=== PATIENT | female | born 1975 | race Two or more races ===

== ENCOUNTER 2024-07-22 11:18 | Emergency (ER) | payer MEDICAID, SELFPAY ==
--- NOTE | 2024-07-22 11:20 | EKG_ITS ---
[facility] Test Date: 2024-07-22 Pat Name: LINDA HERRERA Department: Room: - Gender: Female Alternative Medicine Practitioner: : 1975 Requested By: ED Temporary Provider Order Number: [id number] Reading MD: ED Temporary Provider Measurements Intervals [place] Rate: 78 P: 42 HI: 157 QRS: 100 QRSD: 85 T: 53 QT: 381 QTc: 435 Interpretive Statements SINUS RHYTHM BORDERLINE RIGHT AXIS DEVIATION [QRS AXIS > 90] MINIMAL ST DEPRESSION [0.025+ mV ST DEPRESSION] Compared to ECG 03/18/2024 15:26:20 ST (T wave) deviation now present /store/S0/[id number].pdf
[2024-07-22 11:26] VITALS: BP 145/86; PULSE 86; RESP 18; TEMP 36.4; O2SAT 98; BMI 29.7
--- NOTE | 2024-07-22 11:50 | XR_ITS ---
Examination: CT brain head without contrast. 2-D sagittal coronal reconstructions Date and time of exam:July 22, 2024 1235 hours Comparison March 18, 2024 INDICATIONS: Headaches beginning 3 days ago CTDI: vol (mGy):46.1 DLP: (mGycm):911 Technique: Multiple CT axial sections of the brain have been obtained, 5 mm slice thickness. Contrast has not been administered. 2-D sagittal, coronal reconstructions have been obtained Low dose protocols were performed. One or more of the following dose reduction techniques were used; automated exposure control, adjustment of the mA and/or KV according to patient size, use of iterative reconstruction technique. Findings: No significant ventricular enlargement. Intra-axial or extra-axial hemorrhage density is not seen. No mass effect or midline shift Basal cisterns are not remarkable. Fourth ventricle is midline. Cranial vault intact. Impression: Negative for acute hemorrhage, mass effect or midline shift Advise clinical correlation follow-up accordingly
--- NOTE | 2024-07-22 11:50 | XR_ITS ---
Examination: PA lateral chest 2 views TECHNIQUE: Upright PA lateral chest 2 views Exam date and time: July 22, 2024 1157 hours Comparison December 03, 2023 INDICATIONS: Onset chest pain today. FINDINGS: Normal heart size Lungs are clear. The osseous structures are intact IMPRESSION: No active disease
--- NOTE | 2024-07-22 11:51 | PD.EDRME ---
Rapid Medical Screening Exam RME Arrival date/time: 07/22/24 11:18 49-year-old female presents to the emergency department complains of headache dizziness and chest pain Chief Complaint: Headache Time Seen by Provider: 07/22/24 11:20 Vital signs: Vital Signs Temperature 97.6 F 07/22/24 11:26 Pulse Rate 86 07/22/24 11:26 Respiratory Rate 18 07/22/24 11:26 Blood Pressure 145/86 H 07/22/24 11:26 Pulse Oximetry (%) 98 07/22/24 11:26 Oxygen Delivery Method Room Air 07/22/24 11:26
[2024-07-22 12:29] LABS: Basophils % (Auto) 1 % (0-2.5); Eosinophils # (Auto) 0.1 Thou/mm3 (0.0-0.5); Eosinophils % (Auto) 2 % (0-10); Hemoglobin 13.4 g/dL (12.0-16.0); Immature Granulocytes % (Auto) 0 % (0-0); Immature Granulocytes Auto 0.01 Thou/mm3 (0.00-0.00); Lymphocytes # (Auto) 2.2 Thou/mm3 (1.0-4.8); Lymphocytes % (Auto) 44 % (10-50); Mean Corpuscular HGB Conc 35.3 g/dl (31.0-37.0); Mean Corpuscular Hemoglobin 31.1 pg (25.0-35.0); Mean Corpuscular Volume 88 fL (80-100); Monocytes # (Auto) 0.3 Thou/mm3 (0.0-0.8); Monocytes % (Auto) 6 % (0-12); Neutrophils # (Auto) 2.4 Thou/mm3 (1.8-7.7); Neutrophils % (Auto) 48 % (37-80); Nucleated Red Blood Cell % 0 /100 WBC (0); Platelet Count 228 Thou/mm3 (140-440); RDW Standard Deviation 39.1 fL (36.4-46.3); Red Blood Count 4.31 Miln/mm3 (4.00-5.20)
[2024-07-22 12:50] LABS: Alanine Aminotransferase 15 U/L (10-49); Albumin, Serum 4.7 gm/dL (3.5-5.0); Albumin/Globulin Ratio 1.5 (1.2-2.2); Alkaline Phosphatase 116 U/L (46-116); Anion Gap 8 (7-16); Aspartate Amino Transferase 17 U/L (0-34); BUN/Creatinine Ratio 13 Ratio (12-20); Bilirubin,Total 0.4 mg/dL (0.3-1.2); Blood Urea Nitrogen 8 mg/dL (9-23); Calcium 9.5 mg/dL (8.3-10.6); Calcium (Corrected) 9.5 mg/dL (8.5-10.1); Carbon Dioxide 25.3 mMol/L (20.0-31.0); Chloride 102 mMol/L (98-107); Creatinine (Component) 0.6 mg/dL (0.6-1.3); Estimated Creatinine Clearance 98.3 mL/min (>60); Globulin 3.1 gm/dL (2.3-3.5); Glucose 145 mg/dL (74-106); Osmolality,Calculated 271 (275-295); Potassium 3.6 mMol/L (3.4-5.1); Sodium 135 mMol/L (136-145); Total Protein 7.8 gm/dL (5.7-8.2); Troponin I < 0.002 ng/mL (0.0-0.045); eGFR > 60 See Note
[2024-07-22 13:43] VITALS: BP 128/84; PULSE 65; RESP 18; TEMP 36.8; O2SAT 96
--- NOTE | 2024-07-22 14:47 | PD.EDHA ---
ED Headache RME/HPI General Chief Complaint: Headache Stated Complaint: THORNE, CHEST PAIN Time Seen by Provider: 07/22/24 11:20 Arrival date/time: 07/22/24 11:18 RME / HPI RME / HPI Narrative: 49-year-old female patient with no significant medical history, came in for evaluation regarding headache. Patient's been having occipital headache for the last 3 days, associated with dizziness. Also complained of left-sided chest pain for 3 days described as dull except mild. Denies any cough denies any fever denies any upper or lower extremity weakness. Patient is ambulatory. Denies any head trauma or fall. Related Data Previous Rx's ?Medication ?Instructions ?Recorded acetaminophen 500 mg capsule 1,000 mg (2 x 500 mg) PO Q8HR PRN 03/02/20 pain #60 caps cyclobenzaprine 10 mg tablet 10 mg PO TID PRN muscle spasm #30 03/02/20 tabs ibuprofen 800 mg tablet 800 mg PO TID PRN pain #30 tabs 03/02/20 ciprofloxacin HCl 500 mg tablet 500 mg PO BID #14 tabs 01/18/23 famotidine 20 mg tablet 20 mg PO QDAY #14 tabs 01/18/23 ibuprofen 800 mg tablet 800 mg PO Q8H PRN pain #30 tabs 07/17/23 naproxen 500 mg tablet 500 mg PO BID #30 tabs 11/25/23 scopolamine base 1 mg over 3 days 1 mg topical .q 3 days #10 ea 12/03/23 transdermal patch (Transderm-Scop) rizatriptan 10 mg disintegrating 10 mg PO Q2H PRN migraine headache 07/22/24 tablet (Maxalt[employer]) #30 tabs Allergies Allergy/AdvReac Type Severity Reaction Status Date / Time No Known Allergies Allergy Verified 03/18/24 15:02 Review of Systems Review of Systems Narrative Review of Systems: Review of system reviewed and within normal limits except mentioned in HPI ED Exam Narrative Physical exam: VITAL SIGNS: Reviewed. GENERAL APPEARANCE: Alert and interactive, follows commands, no acute distress, HEAD AND FACE: Non-traumatic. ENT: PERRL, pink conjunctivitis, eyelid no trauma, Mucous membrane moist. NECK: Supple, nontender, no nuchal rigidity. CHEST: No tenderness, no crepitus, no paradoxical movement, no retractions. LUNGS: Clear, well ventilated, symmetric, no rales, no wheezing, no ronchi, no stridor, good breath sounds bilaterally. HEART: Regular rate, regular rhythm, no murmur, no gallops. ABDOMEN: Soft, positive bowel sounds, nondistended, no guarding, nontender, no rebound, no masses, RECTAL: Deferred. GENITAL: Deferred. NEUROLOGICAL: Gross motor function intact sensory function intact, Appropriate for age. MUSCULOSKELETAL: low back nontender, full range of motion. EXTREMITIES: Nontender, full range of motion. SKIN: Color pink, dry, no rash, no lacerations, no abrasions, no contusions. LYMPHATICS: Deferred. Course Quality Measures none Orders Category Date Time Status EKG (ED ONLY) *Do not use* NOW Care 07/22/24 11:[address] head/brain wo con Stat Exams 07/22/24 11:50 Completed EKG (ED Only) Stat Exams 07/22/24 11:20 Draft XR chest 2V Stat Exams 07/22/24 11:50 Completed CBC Stat Lab 07/22/24 12:07 Completed Comprehensive Metabolic Panel Stat Lab 07/22/24 12:07 Completed Troponin I Stat Lab 07/22/24 12:07 Completed Ketorolac Inj [Toradol Inj] Med 07/22/24 14:46 Discontinued 30 mg IM X1 ONE Vital Signs Vital signs: Vital Signs Temperature 97.6 F 07/22/24 11:26 Pulse Rate 86 07/22/24 11:26 Respiratory Rate 18 07/22/24 11:26 Blood Pressure 145/86 H 07/22/24 11:26 Pulse Oximetry (%) 98 07/22/24 11:26 Oxygen Delivery Method Room Air 07/22/24 11:26 Headache MDM Narrative MDM Narrative:: 49-year-old female patient with no significant medical history, came in for evaluation regarding headache. Patient's been having occipital headache for the last 3 days, associated with dizziness. Also complained of left-sided chest pain for 3 days described as dull except mild. Denies any cough denies any fever denies any upper or lower extremity weakness. Patient is ambulatory. Denies any head trauma or fall. Laboratory workup all came back normal cardiac workup is normal EKG also came back unremarkable chest x-ray also came back unremarkable. CT scan of the head also came back unremarkable. Results discussed with the patient. Patient was given Toradol IM with good relief of headache. Repeat troponin is not needed since symptoms been ongoing for 3 days now. Patient data External records reviewed:: None Clinical information provided by:: none Social determinants that could affect healthcare access:: none Patient has the following chronic illnesses:: None How is presenting disease/condition affected by chronic disease/condition?: no chronic disease Evaluation data The following diagnostics were reviewed and interpreted by me:: lab results, radiology exam(s) and EKG tracing(s) Lab and/or radiology exams considered but not ordered:: None Interpretation Summary: Laboratory workup including troponin all came back normal. CT scan of the head came back unremarkable. I personally reviewed and interpreted the x-ray of this patient. There is no acute abnormalities found, no infiltrates no pneumothorax no hemothorax normal chest x-ray. Review of other structures was without significant abnormal findings also. I additionally reviewed the radiologist report and agree with the interpretation. EKG showed normal sinus rhythm, ventricular rate of 78 bpm, no ST segment elevation depression noted. Medications / Prescriptions Medications or Prescriptions considered but not ordered:: None Medication administrations:: Medication Administration History Discontinued Medications Ketorolac Tromethamine (Ketorolac Inj 60 Mg/2 Ml Vial) 30 mg IM X1 ONE Stop: 07/22/24 14:47 Last Admin: 07/22/24 15:14 Dose: 30 mg Documented By: OA Toradol IM Consultations Consultation(s) initiated? (list below): No Diagnosis Differential diagnosis headache: migraine, tension headache and headache Most likely diagnosis given after review of the tests above:: Stable Admission Indicated Admission indicated?: not indicated Explain why admission is indicated or not indicated:: Stable discharge Admission Request Was there a request for admission?: No Disposition Plan Disposition Plan: Discharge Discharge Attestation Discharge Attestation: The patient and all family members were given an opportunity to ask questions and understood the discharge instructions. Discharge instructions specifically effects, indications for sooner follow up or return to the emergency department, and the expected course of current diagnosis. Patient condition: Stable Discharge Plan Plan Patient Disposition: HOME (Self Care) Disposition Comment: stable Prescriptions/Referrals Prescriptions/Med Rec: New rizatriptan [Maxalt[employer]] 10 mg tablet,disintegrating 10 mg PO Q2H PRN (Reason: migraine headache) Qty: 30 0RF Rx Instructions: do not exceed 3 doses per 24 hrs No Action cyclobenzaprine 10 mg tablet 10 mg PO TID PRN (Reason: muscle spasm) Qty: 30 0RF ibuprofen 800 mg tablet 800 mg PO TID PRN (Reason: pain) Qty: 30 0RF acetaminophen 500 mg capsule 1,000 mg PO Q8HR PRN (Reason: pain) Qty: 60 0RF famotidine 20 mg tablet 20 mg PO QDAY Qty: 14 0RF ciprofloxacin HCl 500 mg tablet 500 mg PO BID Qty: 14 0RF ibuprofen 800 mg tablet 800 mg PO Q8H PRN (Reason: pain) Qty: 30 0RF scopolamine base [Transderm-Scop] 1 mg over 3 days patch 3 day 1 mg topical .q 3 days Qty: 10 0RF naproxen 500 mg tablet 500 mg PO BID Qty: 30 0RF Referrals: Jesse Staley([facility]MD [Primary Care Provider] - In 1 week Problem List Clinical Impression: Headache Patient/Caregiver Discharge Instructions Discharge Activity: activity as tolerated Education Materials: Self-Care for Headaches Additional Instructions: Thank you for the opportunity for serving you today. You are stable for discharged . You are advised to: Follow-up with your PCP in 1 to 2 days Return to ED for worsening of symptoms Increase oral fluids Take medication as prescribed Print Language: Setswana Stand Alone Forms: Brenda Award Info., Patient Portal Info Letter PA/DISTRIBUTION OPERATIONS MANAGER Supervising Physician PA/DISTRIBUTION OPERATIONS MANAGER Supervising Physician: MD Jihan
[2024-07-22] MEDS: KETOROLAC INJ 60 MG/2 ML VIAL 30 MG IM (15:14)
== END 2024-07-22 15:41 | disposition home or self-care (01) ==
PROVIDERS: Nurse Practitioner Primary Care; Emergency Provider Emergency Medicine; PCP Family Medicine
DX: R51.9 Headache, unspecified (principal)
CPT/HCPCS: 36415; 70450; 71046; 80053; 84484; 85025; 93005; 96372; 99284; J1885

== ENCOUNTER 2025-01-13 15:02 | Emergency (ER) | payer MEDICAID, SELFPAY ==
[2025-01-13 15:15] VITALS: BP 139/88; PULSE 99; RESP 17; TEMP 37.5; O2SAT 96
--- NOTE | 2025-01-13 15:46 | XR_ITS ---
Examination: CT abdomen and pelvis without contrast. Coronal 3-D reconstructions. Sagittal 2-D reconstructions. Date and time of exam: January 13, 2025, 1704 hours INDICATIONS: Left lower abdominal pain onset today CTDI: vol (mGy): 8.50 DLP: (mGycm): 452 Technique: Axial images of the abdomen have been obtained, 3 mm slice thickness Intravenous contrast material has not been administered. Low dose protocols were performed. One or more of the following dose reduction techniques were used; automated exposure control, adjustment of the mA and/or KV according to patient size, use of iterative reconstruction technique. Findings: No visualized liver or splenic lesion Absent gallbladder No pancreatic or adrenal mass No renal or ureteral calculi, no hydronephrosis Aorta normal size 25 mm fat-containing umbilical hernia No pericecal inflammatory change Acute diverticulitis junction distal descending colon and sigmoid colon No peridiverticular abscess Anteverted uterus Mild thickening of the urinary bladder wall up to 6 mm Advanced degenerative disc disease L5-S1 IMPRESSION: Acute diverticulitis junction distal descending colon and sigmoid colon No peridiverticular abscess
--- NOTE | 2025-01-13 15:47 | PD.EDRME ---
Rapid Medical Screening Exam E Arrival date/time: 01/13/25 15:02 49-year-old female with no known medical history presents to the emergency room with a chief complaint of left lower quadrant abdominal pain, fever, nausea, dysuria x 4 days. Patient was sent over by his primary care provider I have greeted and performed a focused initial assessment of this patient. A comprehensive ED assessment and evaluation of the patient, analysis of all test results, and completion of the medical decision making process will be conducted by additional ED providers. Chief Complaint: Abdominal Pain Vital signs: Vital Signs Temperature 99.5 F 01/13/25 15:15 Pulse Rate 99 01/13/25 15:15 Respiratory Rate 17 01/13/25 15:15 Blood Pressure 139/88 H 01/13/25 15:15 Pulse Oximetry (%) 96 01/13/25 15:15 Oxygen Delivery Method Room Air 01/13/25 15:15 Vital signs reviewed by provider: Yes
[2025-01-13 16:19] LABS: Collection Type, Urine Clean Catch
[2025-01-13 16:21] LABS: Basophils % (Auto) 0 % (0-2.5); Eosinophils % (Auto) 0 % (0-10); Hematocrit 38.3 % (36.0-46.0); Hemoglobin 13.6 g/dL (12.0-16.0); Immature Granulocytes % (Auto) 0 % (0-0); Immature Granulocytes Auto 0.02 Thou/mm3 (0.00-0.00); Lymphocytes # (Auto) 1.6 Thou/mm3 (1.0-4.8); Lymphocytes % (Auto) 16 % (10-50); Mean Corpuscular HGB Conc 35.5 g/dl (31.0-37.0); Mean Corpuscular Hemoglobin 31.4 pg (25.0-35.0); Mean Corpuscular Volume 89 fL (80-100); Monocytes # (Auto) 0.5 Thou/mm3 (0.0-0.8); Monocytes % (Auto) 5 % (0-12); Neutrophils # (Auto) 7.7 Thou/mm3 (1.8-7.7); Neutrophils % (Auto) 78 % (37-80); Nucleated Red Blood Cell % 0 /100 WBC (0); Platelet Count 211 Thou/mm3 (140-440); RDW Standard Deviation 40.5 fL (36.4-46.3); Red Blood Count 4.33 Miln/mm3 (4.00-5.20); White Blood Count 9.8 Thou/mm3 (3.6-11.0)
[2025-01-13 16:24] LABS: HCG Qualitative,Urine Negative
[2025-01-13 16:27] LABS: Bacteria,Urine Rare; Bilirubin,Urine Negative (Negative); Blood,Urine 1+ (Negative); Clarity,Urine Clear (Clear/Hazy); Color,Urine Lt-Yellow (Lt Yel-Yel); Glucose, Urine Negative (Negative); Ketones,Urine Negative (Negative); Leukocyte Esterase,Urine Positive (Negative); Nitrite,Urine Negative (Negative); PH,Urine 7.5 (5.0-7.0); Protein,Urine Negative (Neg - Trace); RBC,Urine 14 /hpf (0-3); Squamous Epithelial Cell,Urine 3 /hpf (0-5); Urobilinogen,Urine Negative mg/dL (0.0-1.0); WBC,Urine 18 /hpf (0-5)
[2025-01-13 16:55] LABS: Alanine Aminotransferase 20 U/L (10-49); Albumin, Serum 4.6 gm/dL (3.5-5.0); Albumin/Globulin Ratio 1.5 (1.2-2.2); Alkaline Phosphatase 127 U/L (46-116); Anion Gap 8 (7-16); Aspartate Amino Transferase 26 U/L (0-34); BUN/Creatinine Ratio 11 Ratio (12-20); Bilirubin,Total 0.6 mg/dL (0.3-1.2); Blood Urea Nitrogen 8 mg/dL (9-23); Calcium 8.9 mg/dL (8.3-10.6); Calcium (Corrected) 8.9 mg/dL (8.5-10.1); Carbon Dioxide 26.7 mMol/L (20.0-31.0); Chloride 104 mMol/L (98-107); Creatinine (Component) 0.7 mg/dL (0.6-1.3); Globulin 3.1 gm/dL (2.3-3.5); Glucose 106 mg/dL (74-106); Lipase 45 U/L (12-53); Osmolality,Calculated 275 (275-295); Potassium 4.3 mMol/L (3.4-5.1); Sodium 139 mMol/L (136-145); Total Protein 7.7 gm/dL (5.7-8.2); eGFR > 60 See Note
--- NOTE | 2025-01-13 21:02 | EDNOTE_ITS ---
ED Abdominal Pain RME/HPI General Chief Complaint: Abdominal Pain Stated complaint: LEFT LOWER ABD PAIN X1DAY Time seen by provider: 01/13/25 18:05 Arrival date/time: 01/13/25 15:02 RME / HPI RME / HPI narrative: 01/13/25 15:02 49-year-old female with no known medical history presents to the emergency room with a chief complaint of left lower quadrant abdominal pain, fever, nausea, dysuria x 4 days. Patient was sent over by his primary care provider I have greeted and performed a focused initial assessment of this patient. A comprehensive ED assessment and evaluation of the patient, analysis of all test results, and completion of the medical decision making process will be conducted by additional ED providers. ------- This section includes all my notes and documentations, including HPI, PE, and ED course. Yong Bobo MD HPI: 49yo female with no significant past medical history presents to the ED for a chief complaint of LLQ pain x 4 days. No radiation or migration. Patient reports associated nausea, equivocal fever, and dysuria. Patient states she was seen by her PCP today and was sent here for evaluation. Patient denies any vomiting, chest pain, shortness of breath or any other associated symptoms. No other complaints reported. ROS: All negative except as documented in HPI. Physical Exam: General: Alert and oriented. No acute distress when remaining still. Eyes: Conjunctivae and lids clear. ENT: No nasal congestion. Neck: Supple. Heart: RRR. Lungs: No respiratory distress. Good air movement. No rhonchi, wheezing, rales. Abdomen: Soft with mild LLQ tenderness. Normal bowel sounds. No distension. No rebound or guarding. Back: No CVA tenderness. Skin: Warm and dry. Neuro: Alert and oriented X 3. I reviewed all diagnostic test results. My review of the CT abdomen pelvis report is acute diverticulitis. Blood tests and urine tests are unremarkable. At this point, diagnoses include diverticulitis. Treatment here included Tylenol with Codeine, Ciprofloxacin, Flagyl, and Zofran. Significant improvement noted. Recommended outpatient management. Based on my best medical judgment, made decision no further evaluation or treatment indicated at this time. Patient understands and agrees to the discharge instructions customized and printed, see below. Discharge instructions from Dr. Bobo: 1. After evaluation, your symptoms are due to diverticulitis.? Infection of your colon. 2. Take Cipro and Flagyl for the infection. 3. Zofran for nausea/vomiting. 4. Tyleno with l codeine for severe pain. 5. Clear liquid diet for 24 hours then advance as tolerated. 6. To prevent dehydration, increase oral fluid and maintain clear urine.? If dark or yellow, increase oral fluid. 7. See a private doctor on 01/17/2025. To make sure there is no serious intra-abdominal condition, ask for help with more investigation not available here in the ER. Such as EGD or scoping the stomach, colonoscopy or scoping the colon, and referral to see sales executive. 8. Seek immediate medical care with worsening, fever, or with any concerns. Yong Bobo MD Related Data Previous Rx's ?Medication ?Instructions ?Recorded acetaminophen 500 mg capsule 1,000 mg (2 x 500 mg) PO Q8HR PRN 03/02/20 pain #60 caps cyclobenzaprine 10 mg tablet 10 mg PO TID PRN muscle s pasm #30 03/02/20 tabs ibuprofen 800 mg tablet 800 mg PO TID PRN pain #30 t abs 03/02/20 ciprofloxacin HCl 500 mg tablet 500 mg PO BID #14 tabs 01/18/23 famotidine 20 mg tablet 20 mg PO QDAY #14 tabs 01/18 ibuprofen 800 mg tablet 800 mg PO Q8H PRN pain #30 t abs 07/17/23 naproxen 500 mg tablet 500 mg PO BID #30 tabs 11/24 scopolamine base 1 mg over 3 days 1 mg topical .q 3 da ys #10 ea 12/03/23 transdermal patch (Transderm-Scop) rizatriptan 10 mg disintegrating 10 mg PO Q2H PRN migr francisco javier headache 07/22/24 tablet (Maxalt-[employer]PER[employer] T[employer] HEADING) #30 tabs acetaminophen 300 mg-codeine 30 mg 2 tab PO Q8H PRN pa in #20 tabs 01/13/25 tablet ciprofloxacin HCl 500 mg tablet 500 mg PO BID #20 tabs 01/13/25 (Cipro) metronidazole 500 mg tablet 500 mg PO BID 10 days #20 tabs 01/13/25 ondansetron 4 mg disintegrating 4 mg PO TID PRN nausea and 01/13/25 tablet vomiting 30 days #10 tabs Allergies Allergy/AdvReac Type Severity Reaction Status Date / Time No Known Allergies Allergy Verified 01/13/25 15:05 Review of Systems Review of Systems Systems Reviewed: All systems reviewed, normal except as documented Past Medical History Past Medical History CARDIAC: Negative Congestive Heart Failure RESPIRATORY: Negative Chronic Obstructive Pulmonary Disease (COPD) GENITOURINARY: Negative Renal Disease ENDOCRINE: Negative Diabetes Mellitus Type 1 or Diabetes Mellitus Type 2 Family History FAMILY HISTORY: Negative Family Cardiac Disorders Social History SMOKING STATUS: Never smoker SUBSTANCE USE: does not use ED Exam Narrative Physical exam: As noted in HPI. Course Quality Measures none Orders Category Date Time Status CT abdomen pelvis wo con Stat Exams 01/13/25 15:46 Completed CBC Stat Lab 01/13/25 16:02 Completed CMP [Comprehensive Metabolic Panel] Stat Lab 01/13/25 16:02 Completed HCG Qualitative,Urine Stat Lab 01/13/25 16:14 Completed Lipase Stat Lab 01/13/25 16:02 Completed UA [Urinalysis] Stat Lab 01/13/25 16:14 Completed Urine Culture Stat Lab 01/13/25 16:14 Received ACETAMINOPHEN w/COD 300-30 [Tylenol w/Cod #3] Med 01/13/25 21:04 Discontinued 2 tab PO X1 ONE Ciprofloxacin HCl [Ciprofloxacin] Med 01/13/25 21:04 Discontinued 500 mg PO X1 ONE Ondansetron Odt [Zofran Odt] Med 01/13/25 21:04 Discontinued 4 mg PO X1 ONE metroNIDAZOLE [Flagyl] Med 01/13/25 21:04 Discontinued 500 mg PO X1 ONE Vital Signs Vital signs: Vital Signs Temperature 99.5 F 01/13/25 15:15 Pulse Rate 99 01/13/25 15:15 Respiratory Rate 17 01/13/25 15:15 Blood Pressure 139/88 H 01/13/25 15:15 Pulse Oximetry (%) 96 01/13/25 15:15 Oxygen Delivery Method Room Air 01/13/25 15:15 Abdominal Pain MDM MDM Narrative MDM Narrative:: Scribe Attestation: 01/13/25 Helen Finn am scribing for and in the presence of Dr. Bobo. 49yo female with no significant past medical history presents to the ED for a chief complaint of LLQ pain x 4 days. No radiation or migration. Patient reports associated nausea, fever, and dysuria. Patient states she was seen by her PCP today and was sent here for evaluation. Patient denies any vomiting, chest pain, shortness of breath or any other associated symptoms. No other complaints reported. Patient data External records reviewed:: [facility] previous records (Per chart review, patient was seen here on 07/22/24 for a headache.) Clinical information provided by:: patient Social determinants that could affect healthcare access:: none Patient has the following chronic illnesses:: none How is presenting disease/condition affected by chronic disease/condition?: no chronic disease Evaluation data The following diagnostics were reviewed and interpreted by me:: lab results and radiology exam(s) Lab and/or radiology exams considered but not ordered:: none Interpretation Summary: I reviewed all diagnostic test results. My review of the CT abdomen pelvis report is acute diverticulitis. Blood tests and urine tests are unremarkable except for UTI. Medications / Prescriptions Medications or Prescriptions considered but not ordered:: none Medication administrations:: Medication Administration History Discontinued Medications Acetaminophen/Codeine Phosphate (Acetaminophen W/Cod 300-30 Tablet) 2 tab PO X1 ONE Stop: 01/13/25 21:05 Last Admin: 01/13/25 21:15 Dose: 2 tab Documented By: SHARRON Ciprofloxacin (Ciprofloxacin Hcl 250 Mg Tablet) 500 mg PO X1 ONE Stop: 01/13/25 21:05 Last Admin: 01/13/25 21:15 Dose: 500 mg Documented By: SHARRON Metronidazole (Metronidazole 250 Mg Tablet) 500 mg PO X1 ONE Stop: 01/13/25 21:05 Last Admin: 01/13/25 21:15 Dose: 500 mg Documented By: SHARRON Ondansetron HCl (Ondansetron Odt 4 Mg Tabrap) 4 mg PO X1 ONE; Protocol Stop: 01/13/25 21:05 Last Admin: 01/13/25 21:16 Dose: 4 mg Documented By: SHARRON Tylenol with Codeine, Ciprofloxacin, Flagyl, Zofran Consultations Consultation(s) initiated? (list below): No Diagnosis Differential diagnosis abdominal pain: acute appendicitis, calculus of kidney, constipation, diverticulitis, endometriosis, pancreatitis, small bowel obstruction and other Most likely diagnosis given after review of the tests above:: Diverticulitis Admission Indicated Admission indicated?: not indicated Explain why admission is indicated or not indicated:: With no severe illness, there was no indication for admission. Admission Request Was there a request for admission?: No Disposition Plan Disposition Plan: Discharge Discharge Attestation Discharge Attestation: The patient and all family members were given an opportunity to ask questions and understood the discharge instructions. Discharge instructions specifically effects, indications for sooner follow up or return to the emergency department, and the expected course of current diagnosis. Patient condition: Stable Discharge Plan Plan Patient Disposition: HOME (Self Care) Prescriptions/Referrals Prescriptions/Med Rec: New metronidazole 500 mg tablet 500 mg PO BID 10 Days Qty: 20 0RF acetaminophen-codeine 300-30 mg tablet 2 tab PO Q8H MDD 6 PRN (Reason: pain) Qty: 20 0RF ciprofloxacin HCl [Cipro] 500 mg tablet 500 mg PO BID Qty: 20 0RF ondansetron 4 mg tablet,disintegrating 4 mg PO TID PRN (Reason: nausea and vomiting) 30 Days Qty: 10 0RF No Action cyclobenzaprine 10 mg tablet 10 mg PO TID PRN (Reason: muscle spasm) Qty: 30 0RF ibuprofen 800 mg tablet 800 mg PO TID PRN (Reason: pain) Qty: 30 0RF acetaminophen 500 mg capsule 1,000 mg PO Q8HR PRN (Reason: pain) Qty: 60 0RF famotidine 20 mg tablet 20 mg PO QDAY Qty: 14 0RF ciprofloxacin HCl 500 mg tablet 500 mg PO BID Qty: 14 0RF ibuprofen 800 mg tablet 800 mg PO Q8H PRN (Reason: pain) Qty: 30 0RF scopolamine base [Transderm-Scop] 1 mg over 3 days patch 3 day 1 mg topical .q 3 days Qty: 10 0RF naproxen 500 mg tablet 500 mg PO BID Qty: 30 0RF rizatriptan [Maxalt-[employer] T[employer] HEADING] 10 mg tablet,disintegrating 10 mg PO Q2H PRN (Reason: migraine headache) Qty: 30 0RF Rx Instructions: do not exceed 3 doses per 24 hrs Referrals: Jason Bates MD [Primary Care Provider] - In 1 week Problem List Clinical Impression: Diverticulitis Patient/Caregiver Discharge Instructions Discharge Activity: activity as tolerated Education Materials: ED Diverticulitis Additional Instructions: Discharge instructions from Dr. Bobo: 1. After evaluation, your symptoms are due to diverticulitis.? Infection of your colon. 2. Take Cipro and Flagyl for the infection. 3. Zofran for nausea/vomiting. 4. Tyleno with l codeine for severe pain. 5. Clear liquid diet for 24 hours then advance as tolerated. 6. To prevent dehydration, increase oral fluid and maintain clear urine.? If dark or yellow, increase oral fluid. 7. See a private doctor on 01/17/2025. To make sure there is no serious intra-abdominal condition, ask for help with more investigation not available here in the ER. Such as EGD or scoping the stomach, colonoscopy or scoping the colon, and referral to see sales executive. 8. Seek immediate medical care with worsening, fever, or with any concerns. Instrucciones de mari del Dr. Bobo: 1. Tras la evaluaci?n, natali s?ntomas se deben a diverticulitis. Infecci?n del colon. 2. [place] Ciprofloxacino y Flagyl para la infecci?n. 3. Zofran para las n?useas y los v?mitos. 4. Tyleno con l-code?na para el dolor intenso. 5. Dieta de l?quidos shailesh jassi 24 horas y luego aumente la dosis seg?n la tolerancia. 6. Para prevenir la deshidrataci?n, aumente la ingesta de l?quidos y mantenga la orina sally. Si la orina es oscura o amarilla, aumente la ingesta de l?quidos. 7. Consulte con un m?dico particular el 04/16/2025. Para asegurarse de que no haya shabbir afecci?n intraabdominal grave, solicite ayuda con otras pruebas que no est?n disponibles en urgencias, kenia EGD o endoscopia g?strica, colonoscopia o endoscopia de colon, y derivaci?n a un gastroenter?logo. 8. Busque atenci?n m?dica inmediata si presenta empeoramiento, fiebre o cual quier inquietud. Print Language: Iranian Stand Alone Forms: Brenda Award Info., Patient Portal Info Letter
[2025-01-13] MEDS: ACETAMINOPHEN w/COD 300-30 TABLET 2 TAB PO (21:15)
[2025-01-13] MEDS: CIPROFLOXACIN HCL 250 MG TABLET 500 MG PO (21:15)
[2025-01-13] MEDS: metroNIDAZOLE 250 MG TABLET 500 MG PO (21:15)
[2025-01-13] MEDS: ONDANSETRON ODT 4 MG TABRAP PO (21:16)
[2025-01-13 21:18] VITALS: BP 136/76; PULSE 86; RESP 16; TEMP 37; O2SAT 98
== END 2025-01-13 21:19 | disposition home or self-care (01) ==
PROVIDERS: Nurse Practitioner Family; Emergency Provider Emergency Medicine; PCP Family Medicine
DX: K57.32 Diverticulitis of large intestine without perforation or abscess without bleeding (principal)
CPT/HCPCS: 36415; 74176; 80053; 81001; 81025; 83690; 85025; 87077; 87086; 87186; 99284; Q0162; A9270

== ENCOUNTER 2025-01-14 08:48 | Emergency (ER) | payer MEDICAID, SELFPAY ==
[2025-01-14 08:56] VITALS: BP 119/78; PULSE 75; RESP 16; TEMP 36.4; O2SAT 96; BMI 29.7
--- NOTE | 2025-01-14 09:16 | EDRME_ITS ---
Rapid Medical Screening Exam [facility] Arrival date/time: 01/14/25 08:48 49-year-old female with a history of diverticulitis presents to the emergency room with a chief complaint of left lower quadrant abdominal pain and a headache. Patient was seen here yesterday diagnosed with diverticulitis but she has not picked up her prescription and started her outpatient treatment. Today she presents with worsening signs and symptoms. The patient is afebrile, denies blood in the stool. I have greeted and performed a focused initial assessment of this patient. A comprehensive ED assessment and evaluation of the patient, analysis of all test results, and completion of the medical decision making process will be conducted by additional ED providers. Chief Complaint: Abdominal Pain Vital signs: Vital Signs Temperature 97.5 F 01/14/25 08:56 Pulse Rate 75 01/14/25 08:56 Respiratory Rate 16 01/14/25 08:56 Blood Pressure 119/78 01/14/25 08:56 Pulse Oximetry (%) 96 01/14/25 08:56 Oxygen Delivery Method Room Air 01/14/25 08:56 Vital signs reviewed by provider: Yes
[2025-01-14] MEDS: metroNIDAZOLE 250 MG TABLET 500 MG PO (09:26)
[2025-01-14] MEDS: CIPROFLOXACIN HCL 250 MG TABLET 500 MG PO (09:27)
[2025-01-14] MEDS: HYDROcodone/APAP 5/325 TABLET 1 TAB PO (09:27)
[2025-01-14 10:21] LABS: Basophils % (Auto) 0 % (0-2.5); Eosinophils % (Auto) 0 % (0-10); Hemoglobin 13.2 g/dL (12.0-16.0); Immature Granulocytes % (Auto) 0 % (0-0); Immature Granulocytes Auto 0.02 Thou/mm3 (0.00-0.00); Lymphocytes % (Auto) 13 % (10-50); Mean Corpuscular HGB Conc 34.7 g/dl (31.0-37.0); Mean Corpuscular Hemoglobin 31.2 pg (25.0-35.0); Mean Corpuscular Volume 90 fL (80-100); Monocytes # (Auto) 0.4 Thou/mm3 (0.0-0.8); Monocytes % (Auto) 5 % (0-12); Neutrophils # (Auto) 6.5 Thou/mm3 (1.8-7.7); Neutrophils % (Auto) 82 % (37-80); Nucleated Red Blood Cell % 0 /100 WBC (0); Platelet Count 211 Thou/mm3 (140-440); RDW Standard Deviation 40.6 fL (36.4-46.3); Red Blood Count 4.23 Miln/mm3 (4.00-5.20)
[2025-01-14 10:44] LABS: Alanine Aminotransferase 170 U/L (10-49); Albumin, Serum 4.6 gm/dL (3.5-5.0); Albumin/Globulin Ratio 1.4 (1.2-2.2); Alkaline Phosphatase 183 U/L (46-116); Anion Gap 12 (7-16); Aspartate Amino Transferase 187 U/L (0-34); BUN/Creatinine Ratio 11 Ratio (12-20); Bilirubin,Total 1.5 mg/dL (0.3-1.2); Blood Urea Nitrogen 8 mg/dL (9-23); Calcium 9.1 mg/dL (8.3-10.6); Calcium (Corrected) 9.1 mg/dL (8.5-10.1); Carbon Dioxide 25.4 mMol/L (20.0-31.0); Chloride 100 mMol/L (98-107); Creatinine (Component) 0.7 mg/dL (0.6-1.3); Estimated Creatinine Clearance 84.4 mL/min (>60); Globulin 3.2 gm/dL (2.3-3.5); Glucose 174 mg/dL (74-106); Lipase 36 U/L (12-53); Osmolality,Calculated 276 (275-295); Potassium 4.2 mMol/L (3.4-5.1); Sodium 137 mMol/L (136-145); Total Protein 7.8 gm/dL (5.7-8.2); eGFR > 60 See Note
[2025-01-14 15:51] VITALS: BP 116/76; PULSE 60; RESP 16; TEMP 36.4; O2SAT 99
[2025-01-14 16:32] LABS: Collection Type, Urine Clean Catch
[2025-01-14 16:38] LABS: HCG Qualitative,Urine Negative
[2025-01-14 16:45] LABS: Bacteria,Urine Rare; Bilirubin,Urine Negative (Negative); Blood,Urine Trace (Negative); Color,Urine Yellow (Lt Yel-Yel); Glucose, Urine Negative (Negative); Ketones,Urine Negative (Negative); Leukocyte Esterase,Urine Positive (Negative); Nitrite,Urine Negative (Negative); PH,Urine 6.5 (5.0-7.0); Protein,Urine 1+ (Neg - Trace); RBC,Urine 12 /hpf (0-3); Squamous Epithelial Cell,Urine 26 /hpf (0-5); Urobilinogen,Urine Negative mg/dL (0.0-1.0); WBC,Urine 325 /hpf (0-5)
[2025-01-14 16:50] LABS: Clarity,Urine Hazy (Clear/Hazy)
[2025-01-14 17:17] VITALS: BP 128/74; PULSE 22; TEMP 36.7; O2SAT 95
[2025-01-14 18:09] VITALS: BP 128/74; PULSE 54; RESP 17; TEMP 36.9; O2SAT 98
--- NOTE | 2025-01-14 18:19 | PC.NURSE ---
Patient arrived to ED with c/o pain to left lower quadrant. She stated the pain started 2 days ago at night time when she was asleep. Denies any trauma to area, no bruising noted. Nausea present when pain is intense. She stated she had a colonoscopy 2 years ago for a physical check up, which resulted in a ulcer and hemmhoids. Pt had her gallbladder removed previously. Currently pt's VSS.
--- NOTE | 2025-01-14 18:35 | EDNOTE_ITS ---
ED Abdominal Pain RME/HPI General Chief Complaint: Abdominal Pain Stated complaint: LLQ ABD PAIN/THORNE/NAUSEA Time seen by provider: 01/14/25 18:24 Arrival date/time: 01/14/25 08:48 01/14/25 08:48 49-year-old female with no past medical history presents to the emergency room with a chief complaint of left lower quadrant abdominal pain and a headache since last night. She is also complaining of dysuria and frequency for the past 1 month that comes and goes.. Patient was seen here yesterday, diagnosed with diverticulitis but she has not picked up her prescription and started her outpatient treatment. She indicates her pharmacy was already closed by the time she was released from the ED last night at 8 PM. This morning when she woke up her pain was worse. Today she presents with worsening signs and symptoms. She denies fever, chills, nausea or vomiting, diarrhea or constipation. Last bowel movement was night before last. Denies melena/bright red blood per rectum. Source: patient Mode of arrival: ambulatory Limitations: language barrier (Machine I Cutter phone utilized.) RME / HPI RME / HPI narrative: 01/14/25 08:48 49-year-old female with a history of diverticulitis presents to the emergency room with a chief complaint of left lower quadrant abdominal pain and a headache. Patient was seen here yesterday diagnosed with diverticulitis but she has not picked up her prescription and started her outpatient treatment. Today she presents with worsening signs and symptoms. The patient is afebrile, denies blood in the stool. I have greeted and performed a focused initial assessment of this patient. A comprehensive ED assessment and evaluation of the patient, analysis of all test results, and completion of the medical decision making process will be conducted by additional ED providers. Related Data Previous Rx's ?Medication ?Instructions ?Recorded acetaminophen 500 mg capsule 1,000 mg (2 x 500 mg) PO Q8HR PRN 03/02/20 pain #60 caps cyclobenzaprine 10 mg tablet 10 mg PO TID PRN muscle s pasm #30 03/02/20 tabs ibuprofen 800 mg tablet 800 mg PO TID PRN pain #30 t abs 03/02/20 ciprofloxacin HCl 500 mg tablet 500 mg PO BID #14 tabs 01/18/23 famotidine 20 mg tablet 20 mg PO QDAY #14 tabs 01/18 ibuprofen 800 mg tablet 800 mg PO Q8H PRN pain #30 t abs 07/17/23 naproxen 500 mg tablet 500 mg PO BID #30 tabs 11/24 scopolamine base 1 mg over 3 days 1 mg topical .q 3 da ys #10 ea 12/03/23 transdermal patch (Transderm-Scop) rizatriptan 10 mg disintegrating 10 mg PO Q2H PRN migr francisco javier headache 07/22/24 tablet (Maxalt-GUITAR REPAIR TECHNICIAN) #30 tabs acetaminophen 300 mg-codeine 30 mg 2 tab PO Q8H PRN pa in #20 tabs 01/13/25 tablet ciprofloxacin HCl 500 mg tablet 500 mg PO BID #20 tabs 01/13/25 (Cipro) metronidazole 500 mg tablet 500 mg PO BID 10 days #20 tabs 01/13/25 ondansetron 4 mg disintegrating 4 mg PO TID PRN nausea and 01/13/25 tablet vomiting 30 days #10 tabs Allergies Allergy/AdvReac Type Severity Reaction Status Date / Time No Known Allergies Allergy Verified 01/14/25 08:52 Review of Systems Review of Systems Systems Reviewed: All systems reviewed, normal except as documented Past Medical History Past Medical History NEUROLOGIC: Positive Neurological Disorders (dizziness) CARDIAC: Negative Congestive Heart Failure RESPIRATORY: Negative Chronic Obstructive Pulmonary Disease (COPD) GENITOURINARY: Negative Renal Disease ENDOCRINE: Negative Diabetes Mellitus Type 1 or Diabetes Mellitus Type 2 OTHER HISTORY: Negative Cancer Family History FAMILY HISTORY: Negative Family Cardiac Disorders Surgical History SURGICAL: Positive Section Social History SMOKING STATUS: Never smoker SUBSTANCE USE: does not use ED Exam Narrative Physical exam: Alert and oriented 49-year-old female, no acute distress. Afebrile, nontoxic- appearing, resting comfortably on the gurney. Lungs are clear, regular rate and rhythm without murmurs, bowel sounds present in all 4 quadrants. No percussive tenderness. Mild left lower quadrant tenderness with no rebound or guarding. No RUQ tenderness noted on exam. General Limitations: Present language barrier (Machine [employer] Cutter phone utilized.) General appearance: Present alert and in no apparent distress Course Course Course Narrative: 49-year-old female with no past medical history presents to the emergency room with a chief complaint of left lower quadrant abdominal pain and a headache since last night. She is also complaining of dysuria and frequency for the past 1 month that comes and goes.. Patient was seen here yesterday, diagnosed with diverticulitis but she has not picked up her prescription and started her outpatient treatment. She indicates her pharmacy was already closed by the time she was released from the ED last night at 8 PM. This morning when she woke up her pain was worse. Today she presents with worsening signs and symptoms. She denies fever, chills, nausea or vomiting, diarrhea or constipation. Last bowel movement was night before last. Denies melena/bright red blood per rectum. Alert and oriented 49-year-old female, no acute distress. Afebrile, nontoxic- appearing, resting comfortably on the gurney. Lungs are clear, regular rate and rhythm without murmurs, bowel sounds present in all 4 quadrants. No percussive tenderness. Mild left lower quadrant tenderness with no rebound or guarding. No RUQ tenderness noted on exam. Labs reveal a normal white count with normal H&H and platelets. Chemistry panel reveals glucose 174, elevated LFTs with a total bili of 1.5, AST 187, ALT 170, alk phos 183. Urinalysis reveals hazy yellow urine with a specific gravity of 1.020 with 1+ protein, positive leukocyte esterase, negative nitrites, 12 RBCs, 300 25W BCs, 26 squamous cellS and rare bacteria. Urine hCG is negative. Patient was given Cipro 500 mg p.o. x 1, Flagyl 500 mg p.o. x 1, Hunker 5 mg 1 tab p.o., and levofloxacin 750 mg 1 tab p.o. while in triage. Quality Measures none Orders Category Date Time Status US abdomen Stat Exams 01/14/25 19:03 Completed CBC Stat Lab 01/14/25 09:49 Completed CMP [Comprehensive Metabolic Panel] Stat Lab 01/14/25 09:49 Completed HCG Qualitative,Urine Stat Lab 01/14/25 16:00 Completed Lipase Stat Lab 01/14/25 09:49 Completed UA [Urinalysis] Stat Lab 01/14/25 16:00 Completed Urine Culture Stat Lab 01/14/25 16:00 Received Ciprofloxacin HCl [Ciprofloxacin] Med 01/14/25 09:30 Discontinued 500 mg PO X1 ONE HYDROcodone*/APAP 5/325 [Hunker 5/325] Med 01/14/25 09:14 Discontinued 1 tab PO X1 ONE Levofloxacin [Levaquin] Med 01/14/25 09:30 Discontinued 750 mg PO X1 ONE metroNIDAZOLE [Flagyl] Med 01/14/25 09:14 Discontinued 500 mg PO X1 ONE Vital Signs Vital signs: Vital Signs Temperature 97.5 F 01/14/25 08:56 Pulse Rate 75 01/14/25 08:56 Respiratory Rate 16 01/14/25 08:56 Blood Pressure 119/78 01/14/25 08:56 Pulse Oximetry (%) 96 01/14/25 08:56 Oxygen Delivery Method Room Air 01/14/25 08:56 Abdominal Pain MDM MDM Narrative MDM Narrative:: 49-year-old female with no past medical history presents to the emergency room with a chief complaint of left lower quadrant abdominal pain and a headache since last night. She is also complaining of dysuria and frequency for the past 1 month that comes and goes.. Patient was seen here yesterday, diagnosed with diverticulitis but she has not picked up her prescription and started her outpatient treatment. She indicates her pharmacy was already closed by the time she was released from the ED last night at 8 PM. This morning when she woke up her pain was worse. Today she presents with worsening signs and symptoms. She denies fever, chills, nausea or vomiting, diarrhea or constipation. Last bowel movement was night before last. Denies melena/bright red blood per rectum. Alert and oriented 49-year-old female, no acute distress. Afebrile, nontoxic- appearing, resting comfortably on the gurney. Lungs are clear, regular rate and rhythm without murmurs, bowel sounds present in all 4 quadrants. No percussive tenderness. Mild left lower quadrant tenderness with no rebound or guarding. No RUQ tenderness noted on exam. Labs reveal a normal white count with normal H&H and platelets. Chemistry panel reveals glucose 174, elevated LFTs with a total bili of 1.5, AST 187, ALT 170, alk phos 183. Urinalysis reveals hazy yellow urine with a specific gravity of 1.020 with 1+ protein, positive leukocyte esterase, negative nitrites, 12 RBCs, 300 25W BCs, 26 squamous cellS and rare bacteria. Urine hCG is negative. Patient was given Cipro 500 mg p.o. x 1, Flagyl 500 mg p.o. x 1, Hunker 5 mg 1 tab p.o., and levofloxacin 750 mg 1 tab p.o. while in triage. Abdominal ultrasound reveals absent gallbladder, normal common bile duct, fatty liver, otherwise normal. Patient data External records reviewed:: [facility] previous records Clinical information provided by:: patient Social determinants that could affect healthcare access:: none Patient has the following chronic illnesses:: N/A How is presenting disease/condition affected by chronic disease/condition?: no c hronic disease Evaluation data The following diagnostics were reviewed and interpreted by me:: lab results and radiology exam(s) (From yesterday) Lab and/or radiology exams considered but not ordered:: N/A Interpretation Summary: Labs reveal a normal white count with normal H&H and platelets. Chemistry panel reveals glucose 174, elevated LFTs with a total bili of 1.5, AST 187, ALT 170, alk phos 183. Urinalysis reveals hazy yellow urine with a specific gravity of 1.020 with 1+ protein, positive leukocyte esterase, negative nitrites, 12 RBCs, 300 25W BCs, 26 squamous cellS and rare bacteria. Urine hCG is negative. Medications / Prescriptions Medications or Prescriptions considered but not ordered:: N/A Medication administrations:: Medication Administration History Discontinued Medications Hydrocodone Bitart/Acetaminophen (Hydrocodone/Apap 5/325 Tablet) 1 tab PO X1 ONE Stop: 01/14/25 09:15 Last Admin: 01/14/25 09:27 Dose: 1 tab Documented By: DARRYN Ciprofloxacin (Ciprofloxacin Hcl 250 Mg Tablet) 500 mg PO X1 ONE Stop: 01/14/25 09:31 Last Admin: 01/14/25 09:27 Dose: 500 mg Documented By: DARRYN Levofloxacin (Levofloxacin 250 Mg Tablet) 750 mg PO X1 ONE Stop: 01/14/25 09:31 Metronidazole (Metronidazole 250 Mg Tablet) 500 mg PO X1 ONE Stop: 01/14/25 09:15 Last Admin: 01/14/25 09:26 Dose: 500 mg Documented By: DARRYN Patient was given Cipro 500 mg p.o. x 1, Flagyl 500 mg p.o. x 1, Hunker 5 mg 1 tab p.o., and levofloxacin 750 mg 1 tab p.o. while in triage. Consultations Consultation(s) initiated? (list below): No Diagnosis Differential diagnosis abdominal pain: abdominal pain, diverticulitis, gastroenteritis and other (Cholecystitis, pyelonephritis) Most likely diagnosis given after review of the tests above:: Diverticulitis as diagnosed last night. Admission Indicated Admission indicated?: not indicated Explain why admission is indicated or not indicated:: Patient is stable for discharge. Admission Request Was there a request for admission?: No Disposition Plan Disposition Plan: Discharge Discharge Attestation Discharge Attestation: The patient and all family members were given an opportunity to ask questions and understood the discharge instructions. Discharge instructions specifically effects, indications for sooner follow up or return to the emergency department, and the expected course of current diagnosis. Patient condition: Stable Discharge Plan Plan Patient Disposition: HOME (Self Care) Discharge Disposition comment: Stable Prescriptions/Referrals Prescriptions/Med Rec: No Action cyclobenzaprine 10 mg tablet 10 mg PO TID PRN (Reason: muscle spasm) Qty: 30 0RF ibuprofen 800 mg tablet 800 mg PO TID PRN (Reason: pain) Qty: 30 0RF acetaminophen 500 mg capsule 1,000 mg PO Q8HR PRN (Reason: pain) Qty: 60 0RF famotidine 20 mg tablet 20 mg PO QDAY Qty: 14 0RF ciprofloxacin HCl 500 mg tablet 500 mg PO BID Qty: 14 0RF ibuprofen 800 mg tablet 800 mg PO Q8H PRN (Reason: pain) Qty: 30 0RF scopolamine base [Transderm-Scop] 1 mg over 3 days patch 3 day 1 mg topical .q 3 days Qty: 10 0RF naproxen 500 mg tablet 500 mg PO BID Qty: 30 0RF rizatriptan [Maxalt-GUITAR REPAIR TECHNICIAN] 10 mg tablet,disintegrating 10 mg PO Q2H PRN (Reason: migraine headache) Qty: 30 0RF Rx Instructions: do not exceed 3 doses per 24 hrs metronidazole 500 mg tablet 500 mg PO BID 10 Days Qty: 20 0RF acetaminophen-codeine 300-30 mg tablet 2 tab PO Q8H MDD 6 PRN (Reason: pain) Qty: 20 0RF ciprofloxacin HCl [Cipro] 500 mg tablet 500 mg PO BID Qty: 20 0RF ondansetron 4 mg tablet,disintegrating 4 mg PO TID PRN (Reason: nausea and vomiting) 30 Days Qty: 10 0RF Referrals: Beck Robison PA-C [Primary Care Provider] - In 1 week Problem List Clinical Impression: Diverticulitis Patient/Caregiver Discharge Instructions Education Materials: Discharge Instructions for ..., ED Diverticulitis Additional Instructions: [place] los antibioticos [place] lo prescrito y complete elcurso a pesar de que puede sentirse major. Mark un seguimiento con lee medico de atencion primaria en 24 a 48 horas. Regresar al departamento de emergencias por cualquier sintoma nuevo o que empeore. Print Language: Brune[place] Stand Alone Forms: Brenda Award Info., Patient Portal Info Letter PA/CLERK SECRETARY Supervising Physician PA/CLERK SECRETARY Supervising Physician: Dr. Bobo
--- NOTE | 2025-01-14 19:03 | XR_ITS ---
Examination: Abdomen sonogram, complete Date and time of exam: January 14, 2025 2115 hours INDICATIONS: Lower abdominal pain and elevated liver function tests on laboratory examination today. Technique: Multiple real-time grayscale transabdominal sonographic images of the abdomen have been obtained. Findings: Absent gallbladder Common bile duct 0.3 cm, no stones Pancreatic head 2.4 cm Aorta not enlarged Liver 14.7 cm fatty infiltration Normal hepatopedal portal venous flow Patent IVC Right kidney 9.5 cm renal cortex 2.7 cm Left kidney 11.3 cm renal cortex 2.0 cm Spleen not enlarged IMPRESSION: Absent gallbladder Normal common bile duct Fatty liver
== END 2025-01-14 22:59 | disposition home or self-care (01) ==
PROVIDERS: Nurse Practitioner Family; Emergency Provider Emergency Medicine; PCP Family Medicine
DX: K57.92 Diverticulitis of intestine, part unspecified, without perforation or abscess without bleeding (principal); K76.0 Fatty (change of) liver, not elsewhere classified
CPT/HCPCS: 36415; 76700; 80053; 81001; 81025; 83690; 85025; 87086; 99284; A9270

== ENCOUNTER → 2025-06-11 | Outpatient (CLI) | payer MEDICAID, SELFPAY ==
--- NOTE | 2025-06-11 07:30 | XR_ITS ---
Examination: MRI cervical spine without intravenous contrast Date and time of exam: June 11, 2025, 0712 hours INDICATIONS: Neck pain radiating to the shoulders beginning 2 years ago Technique: Multiple axial and sagittal sections of the cervical spine to been obtained. T2 weighted sagittal sections, TR 3, 270, TE 117 T1-weighted sagittal sections, TR 500, TE 11 T1-weighted axial sections, TR 607, TE 12, axial sections TR 18, TE 27 and T2 weighted transverse sections, TR 3920, TE 122. Findings: Straightening normal cervical lordosis. No cervical fracture. Diffuse cervical disc desiccation No significant cervical disc narrowing. Intact odontoid C5-C6 3 mm central subarticular osteophyte disc complex with advanced right and moderate left neural foraminal stenosis IMPRESSION: C5-C6 3 mm central subarticular osteophyte disc complex with advanced right and moderate left neural foraminal stenosis
== END | disposition home or self-care (01) ==
LOC: SMRI 07:03
PROVIDERS: PCP Family Medicine; Referring Provider Psychiatry & Neurology Clinical Neurophysiology; Visit Provider Psychiatry & Neurology Clinical Neurophysiology
DX: M25.78 Osteophyte, vertebrae (principal); M48.02 Spinal stenosis, cervical region
CPT/HCPCS: 72141